=== PATIENT | female | born 1980 | race Caucasian/White ===

== ENCOUNTER 2023-01-17 13:55 | Outpatient (CLI) | payer OTHER, SELFPAY ==
--- NOTE | 2023-01-17 14:00 | CRLHL7_ITS ---
For Patients: As a result of the Century Cures Act, medical imaging exams and procedure reports are released immediately into your electronic medical record. You may view this report before your referring provider. If you have questions, please contact your health care provider. BILATERAL SCREENING MAMMOGRAM WITH COMPUTER-AIDED DETECTION AND TOMOSYNTHESIS TECHNIQUE: CC and MLO views were obtained. These mammographic images have been obtained using full-field digital technique. These mammographic images were interpreted with the benefit of computer-aided detection. Breast Tomosynthesis was used in this interpretation. COMPARISON FILM: 11/25/21, 10/19/19, 06/12/19. FINDINGS: The breasts are heterogeneously dense, which may obscure small masses IMPRESSION: There is no radiographic evidence for malignancy. ASSESSMENT: BI-RADS Category 1: Negative RECOMMENDATION: Routine screening mammogram in 1 year. A lay language report of this examination will be provided to the patient. Huang Chen M.D. Diagnostic Radiologist [email or web address] Transcribed: 2:08 p.alem lind/Dictated by: Huang Chen MD @ 01/18/2023 12:04:00 PM (Electronically Signed)
== END 2023-01-17 13:56 | disposition home or self-care (01) ==
LOC: MAMMO 13:59
PROVIDERS: PCP Emergency Medicine; Visit Provider Physician Assistant Medical
DX: Z12.31 Encounter for screening mammogram for malignant neoplasm of breast (principal); R92.2 Inconclusive mammogram
CPT/HCPCS: 77063; 77067

== ENCOUNTER 2023-01-24 07:57 | Outpatient (CLI) | payer OTHER, SELFPAY | END 2023-01-24 07:58 | disposition home or self-care (01) | LOC: NFLDREF 01-26 13:44 | PROVIDERS: PCP Emergency Medicine; Referring Provider Emergency Medicine; Visit Provider Emergency Medicine | DX: Z00.00 Encounter for general adult medical examination without abnormal findings (principal); Z13.1 Encounter for screening for diabetes mellitus; Z13.6 Encounter for screening for cardiovascular disorders | CPT/HCPCS: 80048; 80061 ==

== ENCOUNTER 2023-06-22 09:38 | Outpatient (CLI) | payer OTHER, SELFPAY ==
--- NOTE | 2023-06-22 09:53 | W.ANESCHARGE ---
Anesthesia Charges Start Date/Time Anesthesia Start Date: 06/22/23 Anesthesia Start Time: 10:21 Stop Date/Time Anesthesia Stop Date: 06/22/23 Anesthesia Stop Time: 10:45
--- NOTE | 2023-06-22 10:47 | W.ANESCHARGE ---
Anesthesia Charges Start Date/Time Anesthesia Start Date: 06/22/23 Anesthesia Start Time: 10:21 Stop Date/Time Anesthesia Stop Date: 06/22/23 Anesthesia Stop Time: 10:45
== END 2023-06-22 09:39 | disposition home or self-care (01) ==
LOC: OP CLINIC 09:38
PROVIDERS: PCP Emergency Medicine; Visit Provider Internal Medicine
DX: Z12.11 Encounter for screening for malignant neoplasm of colon (principal); K63.89 Other specified diseases of intestine; Z80.0 Family history of malignant neoplasm of digestive organs
CPT/HCPCS: 45378; 811; 812; J2704

== ENCOUNTER 2024-04-04 08:02 | Outpatient (CLI) | payer OTHER, SELFPAY ==
--- NOTE | 2024-04-04 08:15 | CRLHL7_ITS ---
For Patients: As a result of the Century Cures Act, medical imaging exams and procedure reports are released immediately into your electronic medical record. You may view this report before your referring provider. If you have questions, please contact your health care provider. BILATERAL SCREENING MAMMOGRAM WITH COMPUTER-AIDED DETECTION AND TOMOSYNTHESIS TECHNIQUE: CC and MLO views were obtained. These mammographic images have been obtained using full-field digital technique. These mammographic images were interpreted with the benefit of computer-aided detection. Breast Tomosynthesis was used in this interpretation. COMPARISON FILM: 01/17/23, 11/25/21, 08/19/20. FINDINGS: There are scattered areas of fibroglandular density IMPRESSION: There is no radiographic evidence for malignancy. ASSESSMENT: BI-RADS Category 1: Negative RECOMMENDATION: Routine screening mammogram in 1 year. A lay language report of this examination will be provided to the patient. Huang Chen M.D. Diagnostic Radiologist [email or web address] Transcribed: 1:05 p.alem lind/Dictated by: Huang Chen MD @ 04/04/2024 11:22:00 AM (Electronically Signed)
== END 2024-04-04 08:03 | disposition home or self-care (01) ==
LOC: MAMMO 08:03
PROVIDERS: PCP Emergency Medicine; Visit Provider Emergency Medicine
DX: Z12.31 Encounter for screening mammogram for malignant neoplasm of breast (principal)
CPT/HCPCS: 77063; 77067

== ENCOUNTER 2024-04-07 08:50 | Outpatient (CLI) | payer OTHER, SELFPAY | END 2024-04-07 08:51 | disposition home or self-care (01) | LOC: NFLDREF 23:23 | PROVIDERS: PCP Emergency Medicine; Referring Provider Emergency Medicine; Visit Provider Emergency Medicine | DX: Z13.228 Encounter for screening for other metabolic disorders (principal) | CPT/HCPCS: 80048 ==

== ENCOUNTER 2024-10-22 09:30 | Outpatient (CLI) | payer OTHER, SELFPAY | END 2024-10-22 09:31 | disposition home or self-care (01) | PROVIDERS: PCP Emergency Medicine; Visit Provider Physician Assistant Medical | DX: R20.2 Paresthesia of skin (principal) | CPT/HCPCS: 82306; 82607; 82746; 84443 ==

== ENCOUNTER 2025-06-10 08:49 | Outpatient (CLI) | payer OTHER, SELFPAY | END 2025-06-10 08:50 | disposition home or self-care (01) | LOC: NFLDREF 06-15 13:22 | PROVIDERS: PCP Emergency Medicine; Referring Provider Emergency Medicine; Visit Provider Physician Assistant Medical | DX: R63.4 Abnormal weight loss (principal); Z13.1 Encounter for screening for diabetes mellitus; Z13.6 Encounter for screening for cardiovascular disorders | CPT/HCPCS: 80053; 80061 ==

== ENCOUNTER 2025-06-12 08:20 | Outpatient (CLI) | payer OTHER, SELFPAY ==
[2025-06-12 15:30] LABS: Chlamydia DNA Amplified* NOT DETECTED (No Detected); GC DNA Amplified* NOT DETECTED (No Detected)
[2025-06-16 10:19] LABS: Pap Test Digital Imaging Done
[2025-06-17 02:33] LABS: HPV Source Cervix
== END 2025-06-12 08:21 | disposition home or self-care (01) ==
PROVIDERS: PCP Emergency Medicine; Visit Provider Physician Assistant Medical
DX: Z12.4 Encounter for screening for malignant neoplasm of cervix (principal); Z11.51 Encounter for screening for human papillomavirus (HPV)
CPT/HCPCS: 87491; 87591; 87624; 87625; 88141; 88142; 88175

== ENCOUNTER 2025-06-22 07:58 | Outpatient (CLI) | payer OTHER, SELFPAY ==
--- NOTE | 2025-06-22 08:15 | CRLHL7_ITS ---
For Patients: As a result of the Century Cures Act, medical imaging exams and procedure reports are released immediately into your electronic medical record. You may view this report before your referring provider. If you have questions, please contact your health care provider. INDICATION: BILATERAL SCREENING MAMMOGRAM, ASYPTOMATIC 45 Y/O FEMALE COMPARISON: 04/04/2024, 01/17/2023, 11/25/2021 TECHNIQUE: Digital mammogram in CC and MLO projections including computer-aided detection (CAD) and tomosynthesis. BREAST COMPOSITION: The breasts are heterogeneously dense, which may obscure small masses. FINDINGS: No suspicious findings. ASSESSMENT: BI-RADS 1 Negative RECOMMENDATION: Annual screening mammogram. A lay language report of this examination will be provided to the patient. Dictated by: Patrica Johnson MD @ 06/24/2025 08:55:47 (Electronically Signed)
== END 2025-06-22 07:59 | disposition home or self-care (01) ==
LOC: MAMMO 07:58
PROVIDERS: PCP Physician Assistant Medical; Visit Provider Physician Assistant Medical
DX: Z12.31 Encounter for screening mammogram for malignant neoplasm of breast (principal); R92.333 Mammographic heterogeneous density, bilateral breasts
CPT/HCPCS: 77063; 77067